=== PATIENT | male | born 1975 | race Two or more races ===

== ENCOUNTER → 2018-04-14 | Outpatient (CLI) | payer OTHER | END | disposition home or self-care (01) | LOC: RAD 11:10 | DX: M54.5 Low back pain (principal) ==

== ENCOUNTER 2020-06-28 08:02 | Outpatient (CLI) | payer OTHER ==
[~2020-06-28 08:02] MED LIST: IBUPROFEN800 MG PO
== END 2020-06-28 08:21 | disposition home or self-care (01) ==
LOC: SONOGRAMA 08:02 → MAMO-SONO 08:15 → SONOGRAMA 08:21
PROVIDERS: ATTEND Internal Medicine Cardiovascular Disease
DX: R10.84 Generalized abdominal pain (principal)

== ENCOUNTER 2020-07-03 14:53 | Outpatient (CLI) | payer OTHER | END 2020-07-03 15:00 | disposition home or self-care (01) | LOC: TOM 14:53 | PROVIDERS: ATTEND Internal Medicine Cardiovascular Disease | DX: R10.84 Generalized abdominal pain (principal) ==

== ENCOUNTER 2025-03-28 07:22 | Outpatient (CLI) | payer OTHER | END 2025-03-28 07:53 | disposition home or self-care (01) | LOC: SONOGRAMA 07:22 | PROVIDERS: ATTEND Internal Medicine Cardiovascular Disease | DX: M12.9 Arthropathy, unspecified (principal); R10.9 Unspecified abdominal pain; N40.0 Benign prostatic hyperplasia without lower urinary tract symptoms; N39.0 Urinary tract infection, site not specified; R31.9 Hematuria, unspecified ==